=== PATIENT | female | born 2000 | race Caucasian/White ===

== ENCOUNTER 2024-11-23 16:28 | Emergency (ER) | payer OTHER, BC, SELFPAY ==
[2024-11-23 16:36] VITALS: BP 127/90
[2024-11-23 17:08] LABS: HCG, Serum Qualitative Screen Negative
[2024-11-23 17:09] LABS: Hematocrit 37.3 % (37.0-47.0); Hemoglobin 13.2 g/dL (12.0-16.0); Mean Corp Hgb Conc. 35.4 g/dL (33.0-37.0); Mean Corpuscular Volume 85.7 fL (81.0-99.0); Nucleated Red Blood Cells % 0 %; Platelet Count 157 10^3/uL (130-400); Red Cell Dist. Width 13.1 % (11.5-14.5)
[2024-11-23 17:13] LABS: ALT (SGPT) 18 U/L (0-35); AST (SGOT) 20 U/L (14-36); Albumin 4.9 g/dl (3.5-5.0); Alkaline Phosphatase 50 U/L (38-126); Blood Urea Nitrogen 14 mg/dl (7-17); Calcium 9.4 mg/dl (8.4-10.2); Carbon Dioxide 23 mmol/L (22-30); Chloride 105 mmol/L (98-107); Glucose 86 mg/dl (70-99); Potassium 4.0 mmol/L (3.5-5.1); Sodium 137 mmol/L (135-145); Total Protein 7.5 g/dl (6.3-8.2); eGFR > 60.00
[2024-11-23 17:44] LABS: Urine Character Clear (Clear)
[2024-11-23 17:58] LABS: Urine Red Blood Cell 0-2 /HPF (0-2); Urine Squamous Cell 26-30 /LPF (Few); Urine White Cell 0-2 /HPF (0-5)
--- NOTE | 2024-11-23 18:26 | EDRN ---
Resident Dr. Martinez in room w/pt at this time.
--- NOTE | 2024-11-23 18:34 | ED.GENMED ---
History of Present Illness
<Loc Martinez MD, Resident - Last Filed: 11/23/24 22:12>
General
Chief Complaint: Abdominal Symptoms
Source: patient
Exam Limitations: none
Time Seen by Provider: 11/23/24 18:19
History of Present Illness
History of Present Illness:
This is a 24-year-old female with no known past medical history currently on not on any medication, presenting in the emergency department with complaints of lower abdominal pain which started 2 days ago. She reports the pain is 8/10, unsure of the
aggravating or relieving factor. Pain is intermittent and sharp in nature. Denies any fevers or chills, trouble breathing, chest pain, urinary symptoms, nausea/vomiting, diarrhea or constipation. Denies any recent travel or any recent contacts.
Her last menstrual period was 10 days ago.
Denies any other recent changes in medical history .
Past History
<Loc Martinez MD, Resident - Last Filed: 11/23/24 22:12>
Past History
ED Past Medical History: Other (Remote history of ovarian cyst; unclear) and Other
ED Past Surgical History: None
Social History
Tobacco: Non-smoker
Alcohol: Occasional
Drug: None
Living: with family
Employment: Employed
Family History
Family History: Other (Noncontributory)
Review of Systems
<Loc Martinez MD, Resident - Last Filed: 11/23/24 22:12>
Review of Systems
Allergies reviewed?: Yes
Constitutional: Denies fever or chills
EENT: Denies sore throat
Respiratory: Denies cough
Cardiac: Denies chest pain, diaphoresis or palpitations
ABD/GI: Reports abdominal pain; Denies nausea, vomiting, diarrhea or constipated
: Denies dysuria or frequency
Musculoskeletal: Denies joint pain
Skin: Denies itching
Neurological: Denies dizzy or headache
Hematologic/Lymphatic: Denies bleeding
Psychiatric: Reports no symptoms
Phy Exam
<Loc Martinez MD, Resident - Last Filed: 11/23/24 22:12>
General Physical Exam
General Presentation: well appearing and mild distress
General age: appears stated age
General Skin: warm
General Habitus: normal
General Mental: alert
Cardiovascular Exam
Cardiovascular Exam: regular rate/rhythm and no murmur
Pulmonary Exam
Pulmonary Exam: lungs clear and no crackles
Gastrointestinal Exam
Gastrointestinal Exam: normal bowel sounds, soft, non distended and tender (Hypogastric)
Genitourinary Exam Male
Exam Male: no CVAT
Neurological Exam
Neurological Exam: alert and oriented x3
Musculoskeletal Exam
Musculoskeletal Exam: full ROM
Course
<Loc Martinez MD, Resident - Last Filed: 11/23/24 22:12>
Orders/Labs/Results
Orders:
Orders
11/23/24 16:39
Test Result ONCE
11/23/24 16:44
Complete Blood Count/With Diff Urgent
Comprehensive Metabolic Panel Urgent
HCG, Serum Qualitative Screen Urgent
Urinalysis Reflex To Culture Urgent
Date Specimen was Collected: 11/23/24
Time Specimen was Collected: 16:39
Urine Microscopic Reflex Cult Urgent
11/23/24 18:53
Iohexol [Omnipaque] See Protocol PO NOW STA
11/23/24 18:54
CT Abd/pel W Iv And Oral Contr Urgent
Comment:
Reason For Exam: abdominal pain
11/23/24 19:27
0.9% Sodium Chloride 500 ml [Nss] 500 ml IV BOLUS
Ketorolac [Toradol] 15 mg IV NOW STA
11/23/24 19:28
US Pelvis Only (non-obstetric) Urgent
Comment:
Reason For Exam: Lower abdominal pain w h/c ovarian cyst
Abnormal Lab Results
11/23/24
16:44
MPV 11.1 H fL
(7.4-10.4)
Absolute Neuts (auto) 6.6 H 10^3/uL
(1.4-6.5)
Absolute Monos (auto) 0.9 H 10^3/uL
(0.1-0.6)
Urine Bacteria (Reflex) Few A
(Negative)
Urine Albumin (Reflex) 1+ A
(Neg - Trace)
11/23/24 16:44
11/23/24 16:44
Vital Signs
Initial and Last Documented VS:
Initial Vital Signs
Temp Pulse Resp BP Pulse Ox
98.0 F 89 16 127/90 98
11/23/24 16:36 11/23/24 16:36 11/23/24 16:36 11/23/24 16:36 11/23/24 16:36
Last Documented Vital Signs
Temp Pulse Resp BP Pulse Ox
98.0 F 86 16 102/60 100
11/23/24 16:36 11/23/24 21:00 11/23/24 21:00 11/23/24 21:00 11/23/24 21:00
<Hiwot Isidro MD - Last Filed: 11/23/24 19:34>
Orders/Labs/Results
Orders:
Orders
11/23/24 16:39
Test Result ONCE
11/23/24 16:44
Complete Blood Count/With Diff Urgent
Comprehensive Metabolic Panel Urgent
HCG, Serum Qualitative Screen Urgent
Urinalysis Reflex To Culture Urgent
Date Specimen was Collected: 11/23/24
Time Specimen was Collected: 16:39
Urine Microscopic Reflex Cult Urgent
11/23/24 18:53
Iohexol [Omnipaque] See Protocol PO NOW STA
11/23/24 18:54
CT Abd/pel W Iv And Oral Contr Urgent
Comment:
Reason For Exam: abdominal pain
11/23/24 19:27
0.9% Sodium Chloride 500 ml [Nss] 500 ml IV BOLUS
Ketorolac [Toradol] 15 mg IV NOW STA
11/23/24 19:28
US Pelvis Only (non-obstetric) Urgent
Comment:
Reason For Exam: Lower abdominal pain w h/c ovarian cyst
Abnormal Lab Results
11/23/24
16:44
MPV 11.1 H fL
(7.4-10.4)
Absolute Neuts (auto) 6.6 H 10^3/uL
(1.4-6.5)
Absolute Monos (auto) 0.9 H 10^3/uL
(0.1-0.6)
Urine Bacteria (Reflex) Few A
(Negative)
Urine Albumin (Reflex) 1+ A
(Neg - Trace)
11/23/24 16:44
11/23/24 16:44
Vital Signs
Initial and Last Documented VS:
Initial Vital Signs
Temp Pulse Resp BP Pulse Ox
98.0 F 89 16 127/90 98
11/23/24 16:36 11/23/24 16:36 11/23/24 16:36 11/23/24 16:36 11/23/24 16:36
Last Documented Vital Signs
Temp Pulse Resp BP Pulse Ox
98.0 F 86 16 102/60 100
11/23/24 16:36 11/23/24 21:00 11/23/24 21:00 11/23/24 21:00 11/23/24 21:00
<Loc Martinez MD, Resident - Last Filed: 11/23/24 22:12>
MDM/Problems Addressed
Differential Diagnosis Includes:
Mittelschmerz vs appendicitis vs enteritis vs uti vs Ovarian cyst vs renal colic vs less likely pancreatic.
MDM/Problems Addressed:
CBC, CMP unremarkable.
Beta-hCG negative.
UA unremarkable
Will get ultrasound pelvis; if unclear we will get the CT abdomen/pelvis
IV Toradol and IV normal saline bolus for now
update: Pelvic ultrasound showed No sonographic evidence for ovarian torsion. 2.4 cm complex cyst in the right ovary with a sonographic appearance that is most suggestive of a hemorrhagic cyst.
CT was cancelled.
Patient reports pain 05/25
Shared decision with the patient to follow-up with outpatient accounting reconciliation clerk for further evaluation/recommendation. She is advised on worrisome symptoms to look out and advised to return back to the emergency department if she develops any of those
including fevers, chills, vaginal discharge, severe abdominal pain, nausea/vomiting. She was not understanding.
Patient reported that she has a outpatient accounting reconciliation clerk, she cannot recall the name but she will make the appointment raphael
<Loc Martinez MD, Resident - Last Filed: 11/23/24 22:12>
*Pulse Oximetry
SaO2: 98
Oxygen Mode of Delivery: Room air
Patient hypoxic: no
*Critical Care Note
Total Time (30-74mins, 75-104mins- exclusive of procedures): Not Applicable
ED Attending Note
<Loc Martinez MD, Resident - Last Filed: 11/23/24 22:12>
-
Portions of this chart may have been created with voice recognition software.� Occasional wrong word or��sound alike� substitutions may have occurred due to the inherent limitations of voice recognition software.
<Hiwot Isidro MD - Last Filed: 11/23/24 19:34>
ED Attending Note
Patient seen and examined by attending physician: Yes
I performed a history and physical exam of patient and discussed management with resident, I reviewed resident's note and agree with documented findings and plan of care.: Yes
ED Attending Note:
This patient is a 24-year-old female who was feeling perfectly well until Tuesday evening shortly after having intercourse when she noted a somewhat abrupt onset of lower abdominal pain. This pain has been constant without specific side that is
located. It does seem to be worse when she moves around sometimes. She denies associated fever, chills, nausea, vomiting, anorexia, back pain, vaginal bleeding or discharge, urinary symptoms, upper abdominal pain. Her last menstrual period was
approximately 10 to 14 days ago. On exam, patient is awake alert pleasant comfortable appearing. Heart regular rate and rhythm lungs CTA. Abdomen soft, mild tenderness to palpation across the lower abdomen without rebound or guarding.
Differential diagnosis high on the differential is ruptured ovarian cyst. Clinically highly doubt ovarian torsion given minimal pain, not lateral, no history of abnormal ovary, etc. Will check ultrasound to start, may need CT to complete workup to
consider other etiologies such as appendicitis, stone, etc. which I think are far less likely
Discharge Plan
Departure
Patient Disposition: Home (Routine Discharge)
Date of Disposition: 11/23/24
Time of Disposition: 22:10
Patient with high blood pressure during this ER visit?: No
Condition: Fair
Discharge Problem:
Ovarian cyst
Instructions: Ovarian cyst - ED discharge instructions
Referrals:
Mario Alberto Mcgregor MD [Family Provider, Family Practice] - Follow up in 1 week
Activity Restrictions/Additional Instructions:
You were seen today and [facility] emergency department with concerns of lower abdominal pain. While you were in the hospital we performed CBC, CMP, beta hCG, urinalysis all of the above labs were unremarkable. You also had a pelvic
ultrasound which showed No sonographic evidence for ovarian torsion.
2.4 cm complex cyst in the right ovary with a sonographic appearance that is most suggestive of a hemorrhagic cyst.
He received IV Toradol and IV normal saline 500 mL bolus.
We encouraged to follow-up with outpatient accounting reconciliation clerk for further evaluation/recommendation. Please return to the emergency department if you develop any fevers, chills, trouble breathing, chest pain, nausea/vomiting or any severe pain or any
other worrisome symptoms.
Interventions
Interventions:
*Risk Screen - Suicide Last Done: 11/23/24 16:36
*General Assessment Last Done: 11/23/24 19:37
*Neglect/Abuse Screening Last Done: 11/23/24 16:36
*ED- Fall Risk Assessment Last Done: 11/23/24 19:37
*ED COVID-19 Vaccine History Last Done: 11/23/24 19:37
EC-Vxegxj-Ookqgviooi Assessment Last Done: 11/23/24 19:37
Discharge Date and Time
Print Language: SERBIAN
[2024-11-23 19:07] VITALS: BMI 19.0
[2024-11-23] MEDS: OMNIPAQUE 50 ML PO (19:24)
[2024-11-23] MEDS: TORADOL 15 MG IV (19:33)
[2024-11-23] MEDS: NSS 500 IV (19:33)
[2024-11-23 19:37] VITALS: BP 115/69
[2024-11-23 20:00] VITALS: BP 96/76
--- NOTE | 2024-11-23 20:15 | EDRN ---
Pt states she is full for US at this time so switching clerk informed. Pt has finished drinking CT oral contrast as well.
[2024-11-23 21:00] VITALS: BP 102/60
== END 2024-11-23 22:24 | disposition home or self-care (01) ==
LOC: EMR 16:28
PROVIDERS: EMERGENCY PHYSICIAN Emergency Medicine; FAMILY PHYSICIAN Family Medicine
DX: N83.201 Unspecified ovarian cyst, right side (principal); R10.30 Lower abdominal pain, unspecified
CPT/HCPCS: 96374; 96361; 99284; 76856; 80053; 81003; 81015; 84703; 85025

== ENCOUNTER → 2024-12-12 07:49 | Outpatient (REF) | payer BC, SELFPAY | LOC: HWRAD 07:49 | PROVIDERS: ATTENDING PHYSICIAN Advanced Practice Midwife; FAMILY PHYSICIAN Physician Assistant Medical | DX: N83.201 Unspecified ovarian cyst, right side (principal) | CPT/HCPCS: 76830; 76856 ==